=== PATIENT | male | born 1935 | race Two or more races ===

== ENCOUNTER 2017-03-04 14:21 | Emergency (ER) | payer SELFPAY ==
[~2017-03-04] VITALS: Ht 152.4 cm; Wt 63.5 kg
[2017-03-04] MEDS ORDERED: BUPIVACAINE 0.5% 50 ML VIAL. ONE (14:32)
[2017-03-04] MEDS ORDERED: BUPIVACAINE 0.5% 50 ML VIAL. SQ ONE (14:45)
[2017-03-04] MEDS ORDERED: BUPIVACAINE 0.5% 50 ML VIAL. IJ ONE (14:45)
[2017-03-04] MEDS ORDERED: DIPHTH,PERTUSS(ACELL),TET TOX 0.5 ML DISP.SYRIN. VAX IM ONE (14:45)
[2017-03-04 15:29] VITALS: BP 144/93
--- NOTE | 2017-03-04 15:45 | PHYS DOC ---
Past Medical History Past Medical History: No Pertinent History Past Surgical History: No Surgical History Alcohol Use: Occasionally Drug Use: None Adult General Chief Complaint Chief Complaint: FINGER INJURY HPI HPI Patient is a 81 year old M who presents with left ring fingertip injury. Patient states he was working and a piece of wood fell on his left hand from approximately 8 feet injury and the fingertip to his left ring finger. Patient is a right-handed individual. Patient sustained no other injuries. Patient has no other complaints. Pertinent exam findings: Left ring fingertip amputation at the nailbed, cap refill the rest of the fingers less than 2 seconds, +2 radial pulse, patient can move all fingers without any difficulty ED course: Patient was seen and examined, the left ring finger was digitally blocked with bupivacaine 0.5% 8 mL 1524: Discussed CC/HP/PMH with Dr. Moon and will come into the ER today to evaluate the patient, does not want to start antibiotics 1600: Dr. Moon at bedside to repair finger 1632: Dr. Moon sutured the fingertip back on and we'll see if it sticks and will follow-up with him as an outpatient Pertinent results: X-ray left ring finger shows a open tuft fracture and a fingertip and dictation MDM: After reviewing the chart, CC/HPI/PMH, physical exam, [radiological results], do not believe the patient sustained a significant traumatic injury to the left hand warranting further workup and/or admission at this time. Orthopedics came and repaired the fingertip laceration at bedside. Patient is stable for discharge. Recommended follow-up with orthopedics within 1 week. Discussed wound care with the patient Additional verbal discharge instructions were provided to the patient and that if symptoms get worse or any new symptoms arise that are worrisome to the patient he is to return to the emergency room immediately Review of Systems Review of Systems GEN: Denies fevers, chills, sweats HEENT: Denies blurred vision, sore throat CV: no chest pain RESP: Denies shortness of air, cough GI: Denies n/v/d NEURO: Denies confusion, dizziness MSK: Left finger tip pain on his ring finger Current Medications Current Medications Current Medications Medications (Trade) Dose Ordered Sig/Saeed Start Time Stop Time Status Last Admin Dose Admin Bupivacaine HCl (Marcaine 0.5%) 50 ml 1X ONCE 03/04/17 14:45 03/04/17 14:46 DC Diphtheria/ Tetanus/Acell Pertussis (Boostrix) 0.5 ml ONCE ONCE 03/04/17 14:45 03/04/17 14:46 DC 03/04/17 15:09 0.5 ML Allergies Allergies Allergies Coded Allergies Type Severity Reaction Last Updated Verified No Known Drug Allergies 03/04/17 No Physical Exam Physical Exam GEN.: No apparent distress. Alert and oriented. HEENT: Head is normocephalic, atraumatic NECK: Supple. LUNGS: CTAB. HEART: RRR, S1, S2 present. Peripheral pulses intact ABDOMEN: Soft, nontender. Positive bowel sounds. EXTREMITIES: Without any cyanosis, Left ring fingertip amputation at the nailbed, cap refill the rest of the fingers less than 2 seconds, +2 radial pulse , patient can move all fingers without any difficulty NEUROLOGIC: Normal speech, normal tone PSYCHIATRIC: Normal affect, normal mood. SKIN: No ulcerations Current Patient Data Vital Signs Vital Signs Date Time Temp Pulse Resp B/P (MAP) Pulse Ox O2 Delivery O2 Flow Rate FiO2 03/04/17 15:29 85 18 144/93 (110) 95 Room Air 03/04/17 14:36 98.1 98.1 EKG EKG [] Radiology/Procedures Radiology/Procedures X-ray left ring finger shows open tuft fracture with a fingertip amputation [] Course & Med Decision Making Course & Med Decision Making Pertinent Labs and Imaging studies reviewed. (See chart for details) [] Dragon Disclaimer Dragon Disclaimer This electronic medical record was generated, in whole or in part, using a voice recognition dictation system. Departure Departure Impression: Primary Impression: Nailbed laceration, finger Disposition: 01 HOME, SELF-CARE Condition: IMPROVED Referrals: NO PCP (PCP) CHRISTA RUVALCABA II, MD Patient Instructions: Fingertip Laceration Additional Instructions: Follow-up with orthopedics within a week Scripts Hydrocodone/Apap 5-325 (NORCO 5-325 TABLET) 1 Each Tablet 1 TAB PO PRN Q4HRS Y for PAIN for 2 Days, #10 TAB 0 Refills Prov: SHARON RICHMOND DO 03/04/17 Cephalexin (KEFLEX) 500 Mg Capsule 1 CAP PO TID, #21 CAP Prov: SHARON RICHMOND DO 03/04/17 Problem Qualifiers Primary Impression: Nailbed laceration, finger Encounter type: initial encounter Qualified Codes: S61.319A - Laceration without foreign body of unspecified finger with damage to nail, initial encounter SHARON RICHMOND DO Mar 04, 2017 15:45
[2017-03-04] MEDS ORDERED: HYDR-971 PO (16:39)
[2017-03-04] MEDS ORDERED: CEPH-264 PO (16:39)
--- NOTE | 2017-03-04 23:32 | OP ---
DATE OF SURGERY: 03/04/2017 SURGEON: Rolando Ruvalcaba M.D. NETWORK SUPPORT TECHNICIAN: None. ANESTHESIA: Digital block. ESTIMATED BLOOD LOSS: 10 mL. PREOPERATIVE DIAGNOSES: 1. Open phalangeal tuft fracture, left fourth digit. 2. Nail bed injury with avulsion, left fourth digit. PROCEDURE PERFORMED: 1. Nail bed repair, left fourth digit. 2. Irrigation and debridement down to bone. 3. Laceration repair of 4 cm laceration. COMPLICATIONS: None. REASON FOR PROCEDURE: The patient is a very pleasant gentleman who injured his left fourth fingertip and I was asked to see him in consultation after he presented to the Emergency Department. Please see my consult note for full details. DESCRIPTION OF PROCEDURE: After a digital block was placed under sterile technique with bupivacaine and I ensured good anesthesia, I began by irrigating out the open fracture with sterile normal saline and syringe. After appropriate visualization was obtained, I then removed out the distal portion of his fingernail, which had been transected from its proximal portion, that had been avulsed from the nail fold. I then used 5-0 chromic gut to reapproximate the nail bed tissue and after this, I used 3-0 nylon in a simple interrupted fashion to repair the laceration. The fingertip had good capillary refill after this was performed. I then used Xeroform gauze and tufted into the nail fold and covered the remainder of the nail bed with Xeroform gauze as well. I then applied more Xeroform gauze around the laceration. I then placed a sterile gauze and Kerlix around this digit and anchored into his hand and wrist. He tolerated this well. Postop plan is nonweightbearing left upper extremity. Wound care instructions were discussed with his family who was present and acted as an vp platforms. I gave them my contact information and told them to call my clinic to schedule a followup appointment within 1 week. ROLANDO RUVALCABA MD DR: STEPHANIE/michael JOB#: [id number] / [id number] DAVIN
--- NOTE | 2017-03-05 05:24 | CONS ---
DATE OF CONSULTATION: 03/04/2017 REFERRING PROVIDER: Dr. Anthony Stein. CONSULTING PROVIDER: Rolando Fox MD REASON FOR CONSULTATION: Left fourth digit fingertip injury. CHIEF COMPLAINT: Left fourth digit pain. HISTORY OF PRESENT ILLNESS: The patient is a very pleasant 81-year-old speaking gentleman who apparently had a board fall on his finger suffering a near complete fingertip amputation, which prompted his visit today. He denies anything else being injury. He denies pain elsewhere. He is here today with family who were able to interpret. He is right-hand dominant. ALLERGIES: None. MEDICATIONS: Reviewed, please see MRAD. SOCIAL HISTORY: No alcohol or tobacco. FAMILY HISTORY: Noncontributory. REVIEW OF SYSTEMS: Twelve point review of systems negative except as per HPI. MEDICATIONS: Tetanus was updated. PHYSICAL EXAMINATION: GENERAL: The patient is alert and oriented. No acute distress while at rest. Mood and affect are appropriate. He is examined lying in hospital on the ER stretcher. HEENT: Head normocephalic, atraumatic. Extraocular muscles are intact. CARDIOVASCULAR: Regular rate and rhythm. No edema in his lower extremities. LUNGS: Respirations are unlabored with symmetric chest rest. ABDOMEN: Soft, nondistended. EXTREMITIES: Examination of left upper extremity reveals sharp fingertip injury through approximately 50% of his fingertip through the mid portion of the nail of his left fourth digit. Proximal portion of his nail had been avulsed. Sensation is intact to light touch along the radial and ulnar border of all five digits. He can flex and extend well his digits. FDS and FDP are intact digits 2 through 5. IMAGING: X-rays are interpreted by myself. Report was also reviewed. He has a phalangeal tuft fracture through his nail bed injury. IMPRESSION: 1. Nail bed injury. 2. Near complete fingertip amputation. 3. Phalangeal tuft fracture, open. PLAN: I did discuss proceeding with I and D and repair of the laceration as well as the nail bed injury. . Family and the patient agreed to proceed. Please see my operative note for the procedure portion. ROLANDO FOX MD DR: STEPHANIE/michael JOB#: [id number] / [id number] MTDD
--- NOTE | 2017-03-05 08:47 | RAD ---
EXAM: Left 4th finger 3 views. HISTORY: Trauma. COMPARISON: None. FINDINGS: There is an open fracture of the 4th distal phalangeal tuft. There is distraction and volar displacement of the distal fracture fragment. A large laceration traverses the nailbed of the 4th digit. There is no radiopaque foreign body. 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 It is also mild at the 4th and 5th distal interphalangeal joints and the 3rd through 5th metacarpophalangeal joints. IMPRESSION: 1. Open displaced fracture of the 4th distal phalangeal tuft with a nailbed injury.
== END 2017-03-04 17:50 | disposition home or self-care (01) ==
LOC: ER 14:21
DX: W22.8XXA Striking against or struck by other objects, initial encounter (principal); Y93.89 Activity, other specified; Y99.8 Other external cause status; Y92.89 Other specified places as the place of occurrence of the external cause
CPT/HCPCS: 11730; 73140; 90471; 90715; 99284; J3490

== ENCOUNTER 2018-02-12 13:14 | Emergency (ER) | payer SELFPAY ==
[2018-02-12] MEDS ORDERED: CONTRAST GIVEN MC (13:45)
[2018-02-12] MEDS: IOHEXOL 300 MG/ML 100ML VIAL. IV (14:00)
[2018-02-12 14:02] LABS: ADD MAN DIFF? NO
[2018-02-12 14:04] LABS: BASO # 0.1 x10^3/uL (0.0-0.2); BASO % 1 % (0-3); EOS # 0.1 x10^3/uL (0.0-0.7); EOS % 2 % (0-3); HEMATOCRIT 44.8 % (39.0-53.0); HEMOGLOBIN 15.5 g/dL (13.0-17.5); LYMPH # 2.2 x10^3/uL (1.0-4.8); LYMPH % 34 % (24-48); MEAN CORPUSCULAR HEMOGLOBIN 32 pg (25-35); MEAN CORPUSCULAR HGB CONC 35 g/dL (31-37); MEAN CORPUSCULAR VOLUME 91 fL (79-100); MONO # 0.5 x10^3/uL (0.0-1.1); MONO % 8 % (0-9); NEUT # 3.7 x10^3uL (1.8-7.7); NEUT % 56 % (31-73); PLATELET COUNT 238 x10^3/uL (140-400); RED BLOOD COUNT 4.92 x10^6/uL (4.30-5.70); RED CELL DISTRIBUTION WIDTH 13.8 % (11.5-14.5); WHITE BLOOD COUNT 6.6 x10^3/uL (4.0-11.0)
[2018-02-12 14:14] LABS: ANION GAP 9 (6-14); BLOOD UREA NITROGEN 23 mg/dL (8-26); BUN/CREATININE RATIO 18 (6-20); CARBON DIOXIDE 22 mmol/L (21-32); CHLORIDE 98 mmol/L (98-107); CREATININE 1.3 mg/dL (0.7-1.3); GFR 53.1; GLUCOSE 115 mg/dL (70-99); POTASSIUM 3.9 mmol/L (3.5-5.1); SODIUM 129 mmol/L (136-145)
[2018-02-12 14:16] LABS: PROTHROMBIN TIME PATIENT 12.4 SEC (11.7-14.0)
[2018-02-12 14:20] LABS: ALBUMIN 3.6 g/dL (3.4-5.0); ALBUMIN/GLOBULIN RATIO 0.9 (1.0-1.7); ALK PHOS 62 U/L (46-116); ALT (SGPT) 48 U/L (16-63); AST (SGOT) 32 U/L (15-37); CREATINE KINASE 103 U/L (39-308); LIPASE 101 U/L (73-393); TOTAL BILIRUBIN 0.4 mg/dL (0.2-1.0); TOTAL PROTEIN 7.4 g/dL (6.4-8.2)
[2018-02-12 14:22] LABS: TROPONINI < 0.017 ng/mL (0.000-0.055)
[2018-02-12 14:27] LABS: NT-PRO BNP 130 pg/mL (0-449)
[2018-02-12 14:27] LABS: CKMB INDEX 1.5 % (0-4); CKMB MASS 1.7 ng/mL (0.0-3.6); CREATINE KINASE 113 U/L (39-308)
[2018-02-12] MEDS: ONDANSETRON PF 4 MG/2 ML VIAL. IV (14:35)
[2018-02-12] MEDS: fentaNYL PF VIAL 100 MCG/2 ML VIAL IV (14:36)
[2018-02-12 15:20] LABS: BILIRUBIN,URINE NEGATIVE (NEG); CLARITY,URINE CLEAR; COLOR,URINE YELLOW; GLUCOSE,URINE NEGATIVE (NEG); NITRITE,URINE NEGATIVE (NEG); PROTEIN,URINE NEGATIVE (NEG-TRACE)
[2018-02-12 15:28] LABS: BACTERIA,URINE 0 /HPF (0-FEW); RBC,URINE >40 /HPF (0-2); SQUAMOUS EPITHELIAL CELL,UR FEW /LPF; WBC,URINE OCC /HPF (0-4)
[2018-02-12] MEDS: IV NORMAL SALINE 1000ML BAG 1,000 ML IV (15:31)
== END 2018-02-12 16:35 | disposition home or self-care (01) ==
LOC: ER 13:14
DX: M54.40 Lumbago with sciatica, unspecified side (principal); N40.0 Benign prostatic hyperplasia without lower urinary tract symptoms; M79.661 Pain in right lower leg
CPT/HCPCS: 36415; 71045; 74177; 80053; 81001; 82550; 82553; 83690; 83880; 84484; 85025; 85610; 93005; 93971; 96374; 96375; 99285-25; J2405; J3010; J7030; Q9967